=== PATIENT | male | born 1975 | race Caucasian/White ===

== ENCOUNTER → 2025-03-20 18:22 | Outpatient (REF) | payer OTHER, SELFPAY | LOC: RAD 18:22 | PROVIDERS: ATTENDING PHYSICIAN Family Medicine | DX: M75.41 Impingement syndrome of right shoulder (principal); S16.1XXA Strain of muscle, fascia and tendon at neck level, initial encounter | CPT/HCPCS: 72050; 73030 ==

== ENCOUNTER 2025-03-28 06:18 | Day surgery (SDC) | payer OTHER, SELFPAY | END 2025-03-28 11:21 | disposition home or self-care (01) | LOC: GI 06:18 | PROVIDERS: ATTENDING PHYSICIAN Specialist | DX: R13.10 Dysphagia, unspecified (principal); K22.2 Esophageal obstruction; K22.89 Other specified disease of esophagus | CPT/HCPCS: 43249; 43239; 88305 ==

== ENCOUNTER → 2025-05-20 19:49 | Outpatient (REF) | payer OTHER, SELFPAY | LOC: MRI 3T 19:49 | PROVIDERS: ATTENDING PHYSICIAN Physical Medicine & Rehabilitation; FAMILY PHYSICIAN Family Medicine | DX: S46.911A Strain of unspecified muscle, fascia and tendon at shoulder and upper arm level, right arm, initial encounter (principal); M25.511 Pain in right shoulder | CPT/HCPCS: 73221 ==